=== PATIENT | male | born 1980 | race American Indian/Alaskan Native ===

== ENCOUNTER 2016-06-06 15:08 | Emergency (ER) | payer SELFPAY ==
[2016-06-06 18:54] LABS: Bilirubin,Urine NEG (Negative); Blood,Urine NEG (Negative); Ketones,Urine TR mg/dL (Negative); Leukocyte Esterase,Urine SM (Negative); Mucus,Urine FEW /HPF; Nitrite,Urine NEG (Negative); Protein,Urine <15 mg/dL mg/dL (Negative)
--- NOTE | 2016-06-06 19:03 | XRay Report ---
FINAL REPORT PROCEDURE: Three-view lumbar sacral spine series TECHNIQUE: Lumbar spine radiographs, including AP, lateral, and lumbosacral spot views. CPT 19313 HISTORY: low back pain COMPARISON: No prior studies are available for comparison. FINDINGS: There is mild anterior wedging T12 and L1 vertebral bodies. This can be a normal variant. Mild compression fractures are not excluded. Correlation with physical exam recommended. Disc spaces are well preserved. Posterior elements appear intact. Bone density appears normal. SI joints are unremarkable. IMPRESSION: Mild anterior wedging T12-L1 as described. Correlation with physical exam recommended. No other abnormality is seen..
--- NOTE | 2016-06-06 19:04 | XRay Report ---
FINAL REPORT PROCEDURE: AP pelvis and left hip TECHNIQUE: AP pelvis and frog-leg view left hip. HISTORY: left groin pain COMPARISON: No prior studies are available for comparison. FINDINGS: Fracture (s) and/or Dislocation(s): None . Joint space(s): Normal. Soft tissues: Normal. Bone mineralization: Normal. Foreign bodies: None. IMPRESSION: Negative examination.
--- NOTE | 2016-06-06 19:49 | Emergency Department Report ---
ED Lower Extremity HPI - General Chief Complaint: Extremity Injury, Lower Stated Complaint: PAIN IN GROIN AREA Time Seen by Provider: 06/06/16 17:39 Source: patient Mode of arrival: Ambulatory Limitations: No Limitations - History of Present Illness Initial Comments: Patient is a 35-year-old male who presents due to left groin pain 5 days. Patient denies any scrotal pain, penile pain, penile discharge, dysuria or hematuria. Patient states that he has had similar incident in the past that resolved on its own. Patient denies any injury to his left leg or left hip. Patient also complains of having lower back pain. Patient denies any urinary or bowel incontinence. Patient has any numbness or tingling to his lower extremities. MD Complaint: other (left hip pain) Onset/Timin -: days(s) Injury: Hip: Left Type of Injury: unknown Place: home Severity: severe Severity scale (0 -10): 10 Improves With: immobilization Worsens With: movement Associated Symptoms: snap/pop sensation - Related Data Previous Rx's Medication Instructions Recorded Last Taken Type Ibuprofen [Motrin 800 MG tab] 800 mg PO Q8HR PRN #30 tablet 06/06/16 Unknown Rx methOCARBAMOL [Robaxin TAB] 500 mg PO Q8HR PRN #15 tablet 06/06/16 Unknown Rx traMADol [Ultram 50 MG tab] 50 mg PO Q6HR PRN #15 tablet 06/06/16 Unknown Rx Allergies Allergy/AdvReac Type Severity Reaction Status Date / Time No Known Allergies Allergy Unverified 06/06/16 15:25 ED Review of Systems ROS: Stated complaint: PAIN IN GROIN AREA Other details as noted in HPI Comment: All other systems reviewed and negative Constitutional: no symptoms reported. denies: chills, diaphoresis, fever, malaise, weakness Eyes: denies: eye pain, eye discharge, vision change ENT: denies: ear pain, throat pain, dental pain, hearing loss, epistaxis Respiratory: no symptoms reported. denies: cough, orthopnea, shortness of breath, SOB with exertion, SOB at rest, stridor, wheezing Cardiovascular: denies: chest pain, palpitations, dyspnea on exertion, orthopnea , edema, syncope, paroxysmal nocturnal dyspnea Endocrine: no symptoms reported. denies: excessive sweating, flushing, intolerance to cold, intolerance to heat Gastrointestinal: denies: abdominal pain, nausea, vomiting, diarrhea, constipation, hematemesis, melena, hematochezia Genitourinary: denies: urgency, dysuria, frequency, hematuria, discharge, testicular pain, testicular mass Musculoskeletal: back pain, arthralgia (left hip/groin pain). denies: joint swelling, myalgia Skin: denies: rash Neurological: denies: headache, weakness, numbness, paresthesias, confusion Psychiatric: denies: anxiety ED Past Medical Hx - Past Medical History Previous Medical History?: No - Surgical History Additional Surgical History: NECK - Social History Smoking Status: Never Smoker Substance Use Type: Alcohol - Medications Home Medications: Home Medications Medication Instructions Recorded Confirmed Last Taken Type Ibuprofen [Motrin 800 MG tab] 800 mg PO Q8HR PRN #30 tablet 06/06/16 Unknown Rx methOCARBAMOL [Robaxin TAB] 500 mg PO Q8HR PRN #15 tablet 06/06/16 Unknown Rx traMADol [Ultram 50 MG tab] 50 mg PO Q6HR PRN #15 tablet 06/06/16 Unknown Rx ED Physical Exam - General Limitations: No Limitations General appearance: alert, in no apparent distress - Head Head exam: Present: atraumatic, normocephalic, normal inspection - Eye Eye exam: Present: normal appearance, PERRL, EOMI Pupils: Present: normal accommodation - Respiratory Respiratory exam: Present: normal lung sounds bilaterally. Absent: respiratory distress - Cardiovascular Cardiovascular Exam: Present: regular rate, normal rhythm, normal heart sounds - Expanded Lower Extremity Exam Left Hip exam: Present: full ROM, tenderness (left groin area), internal rotation. Absent: swelling, abrasion, laceration, ecchymosis, deformity, crepidus, dislocation, erythema, external rotation, shortening, pelvic stability Upper Leg exam: Present: normal inspection, full ROM. Absent: tenderness Knee exam: Present: normal inspection, full ROM. Absent: tenderness Lower Leg exam: Present: normal inspection, full ROM. Absent: tenderness, swelling, abrasion, laceration Ankle exam: Present: normal inspection, full ROM. Absent: tenderness Foot/Toe exam: Present: normal inspection, full ROM. Absent: tenderness Neuro vascular tendon exam: Present: no vascular compromise. Absent: motor deficit, sensory deficit, significant pain with passive ROM of distal joint Gait: Positive: observed and normal - Back Exam Back exam: Present: normal inspection, full ROM, paraspinal tenderness (lumbar) . Absent: tenderness, CVA tenderness (R), CVA tenderness (L), muscle spasm, vertebral tenderness - Neurological Exam Neurological exam: Present: alert, oriented X3, normal gait - Psychiatric Psychiatric exam: Present: normal affect, normal mood ED Course Vital Signs 06/06/16 06/06/16 15:26 19:53 Temperature 97.3 F L 97.8 F Pulse Rate 95 H 88 Respiratory 18 20 Rate Blood Pressure 131/78 Blood Pressure 129/76 [Left] O2 Sat by Pulse 95 99 Oximetry ED Lower Extremity MDM - Radiology Data Radiology results: report reviewed, image reviewed X-ray of the lumbar spine show mild anterior wedging and T12 and L1. Patient had no thoracic or lumbar spine tenderness during physical exam. X-ray of the left hip showed no acute osseous findings. - Medical Decision Making Patient was in no acute distress, patient had no thoracic or lumbar spine tenderness, patient had pain with internal rotation of the left hip. There was no swelling in the left groin area. Patient had no knee tenderness with palpation or knee pain with full range of motion. Patient denied having any back injury or falls. Patient was given information on follow-up with an ehs specialist. Patient was discharged with a prescription for Robaxin, tramadol and ibuprofen. - Differential Diagnosis lumbar strain, hip strain, sciatica Critical care attestation.: If time is entered above; I have spent that time in minutes in the direct care of this critically ill patient, excluding procedure time. ED Disposition Clinical Impression: Pain of left hip joint Low back pain Qualifiers: Chronicity: acute Back pain laterality: bilateral Sciatica presence: with sciatica Sciatica laterality: sciatica of left side Qualified Code(s): M54.42 - Lumbago with sciatica, left side Disposition: DISCHARGED TO HOME OR SELFCARE Is pt being admited?: No Does the pt Need Aspirin: No Condition: Good Instructions: Lumbar Radiculopathy (ED), Arthralgia (ED) Additional Instructions: Take Robaxin 500 mg every 8 hours as needed for muscle spasms, take tramadol 1 tablet every 6 hours as needed for severe pain, take ibuprofen 800 mg every 8 hours as needed for moderate pain. Do not drive or use heavy machinery when taking tramadol. Follow-up with provided ehs specialist for any complications. Return to the ER if he started having any urinary or bowel incontinence, numbness or tingling to urine lower legs. Prescriptions: Ibuprofen [Motrin 800 MG tab] 800 mg PO Q8HR PRN #30 tablet PRN Reason: Pain methOCARBAMOL [Robaxin TAB] 500 mg PO Q8HR PRN #15 tablet PRN Reason: Muscle Spasm traMADol [Ultram 50 MG tab] 50 mg PO Q6HR PRN #15 tablet PRN Reason: Pain Referrals: PRIMARY CAREMD [Primary Care Provider] - 3-5 Days LAQUITA ROBINS MD [Staff Physician] - 3-5 Days Forms: Work/School Release Form(ED) Time of Disposition: 19:42
[2016-06-06 19:54] VITALS: BP 129/76
== END 2016-06-06 20:14 | disposition home or self-care (01) ==
LOC: ED 15:08
DX: M25.552 Pain in left hip (principal); M54.42 Lumbago with sciatica, left side
CPT/HCPCS: 72100; 81001; 99283

== ENCOUNTER 2016-11-13 12:38 | Emergency (ER) | payer SELFPAY ==
[2016-11-13 13:35] VITALS: BP 130/81
--- NOTE | 2016-11-13 14:39 | Emergency Department Report ---
ED ENT HPI - General Chief complaint: Dental/Oral Stated complaint: INFECTION IN TOOTH/PAIN Time Seen by Provider: 11/13/16 14:31 Source: patient Mode of arrival: Ambulatory Limitations: No Limitations - History of Present Illness MD complaint: tooth pain -: week(s) Location: tooth # Severity scale (0 -10): 6 Quality: stabbing Associated Symptoms: toothache. denies: fever - Related Data Previous Rx's Medication Instructions Recorded Last Taken Type Ibuprofen [Motrin 800 MG tab] 800 mg PO Q8HR PRN #30 tablet 06/06/16 Unknown Rx methOCARBAMOL [Robaxin TAB] 500 mg PO Q8HR PRN #15 tablet 06/06/16 Unknown Rx traMADol [Ultram 50 MG tab] 50 mg PO Q6HR PRN #15 tablet 06/06/16 Unknown Rx Acetaminophen/Codeine [Tylenol 1 tab PO Q6H PRN #14 tab 11/13/16 Unknown Rx /Codeine # 3 tab] Amoxicillin [Amoxicillin TAB] 875 mg PO BID #14 tablet 11/13/16 Unknown Rx Ondansetron [Zofran Odt] 4 mg PO Q8HR PRN #14 tab.rapdis 11/13/16 Unknown Rx Allergies Allergy/AdvReac Type Severity Reaction Status Date / Time No Known Allergies Allergy Verified 11/13/16 13:31 ED Dental HPI - General Chief complaint: Dental/Oral Stated complaint: INFECTION IN TOOTH/PAIN Time Seen by Provider: 11/13/16 14:31 Source: patient Mode of arrival: Ambulatory Limitations: No Limitations - Related Data Previous Rx's Medication Instructions Recorded Last Taken Type Ibuprofen [Motrin 800 MG tab] 800 mg PO Q8HR PRN #30 tablet 06/06/16 Unknown Rx methOCARBAMOL [Robaxin TAB] 500 mg PO Q8HR PRN #15 tablet 06/06/16 Unknown Rx traMADol [Ultram 50 MG tab] 50 mg PO Q6HR PRN #15 tablet 06/06/16 Unknown Rx Acetaminophen/Codeine [Tylenol 1 tab PO Q6H PRN #14 tab 11/13/16 Unknown Rx /Codeine # 3 tab] Amoxicillin [Amoxicillin TAB] 875 mg PO BID #14 tablet 11/13/16 Unknown Rx Ondansetron [Zofran Odt] 4 mg PO Q8HR PRN #14 tab.rapdis 11/13/16 Unknown Rx Allergies Allergy/AdvReac Type Severity Reaction Status Date / Time No Known Allergies Allergy Verified 11/13/16 13:31 ED Review of Systems ROS: Stated complaint: INFECTION IN TOOTH/PAIN Other details as noted in HPI Comment: All other systems reviewed and negative Constitutional: denies: chills, fever Respiratory: denies: cough, shortness of breath Cardiovascular: denies: chest pain Gastrointestinal: denies: nausea, vomiting ED Past Medical Hx - Past Medical History Previous Medical History?: No - Surgical History Additional Surgical History: NECK - Social History Smoking Status: Current Some Day Smoker Substance Use Type: Alcohol - Medications Home Medications: Home Medications Medication Instructions Recorded Confirmed Last Taken Type Ibuprofen [Motrin 800 MG tab] 800 mg PO Q8HR PRN #30 tablet 06/06/16 Unknown Rx methOCARBAMOL [Robaxin TAB] 500 mg PO Q8HR PRN #15 tablet 06/06/16 Unknown Rx traMADol [Ultram 50 MG tab] 50 mg PO Q6HR PRN #15 tablet 06/06/16 Unknown Rx Acetaminophen/Codeine [Tylenol 1 tab PO Q6H PRN #14 tab 11/13/16 Unknown Rx /Codeine # 3 tab] Amoxicillin [Amoxicillin TAB] 875 mg PO BID #14 tablet 11/13/16 Unknown Rx Ondansetron [Zofran Odt] 4 mg PO Q8HR PRN #14 tab.rapdis 11/13/16 Unknown Rx ED Physical Exam - General Limitations: No Limitations General appearance: alert, in no apparent distress - Expanded ENT Exam Expanded Teeth exam: Present: dental caries ED Course Vital Signs 11/13/16 13:31 Temperature 98.0 F Pulse Rate 57 L Respiratory 18 Rate Blood Pressure 130/81 O2 Sat by Pulse 100 Oximetry Critical care attestation.: If time is entered above; I have spent that time in minutes in the direct care of this critically ill patient, excluding procedure time. ED Disposition Clinical Impression: Dental abscess Disposition: DC-01 TO HOME OR SELFCARE Is pt being admited?: No Condition: Stable Prescriptions: Acetaminophen/Codeine [Tylenol /Codeine # 3 tab] 1 tab PO Q6H PRN #14 tab PRN Reason: Pain Amoxicillin [Amoxicillin TAB] 875 mg PO BID #14 tablet Ondansetron [Zofran Odt] 4 mg PO Q8HR PRN #14 tab.rapdis PRN Reason: Nausea And Vomiting
== END 2016-11-13 15:00 | disposition home or self-care (01) ==
LOC: ED 12:38
DX: K04.7 Periapical abscess without sinus (principal); F17.200 Nicotine dependence, unspecified, uncomplicated
CPT/HCPCS: 99282

== ENCOUNTER 2017-03-10 05:58 | Emergency (ER) | payer SELFPAY ==
--- NOTE | 2017-03-10 06:35 | XRay Report ---
FINAL REPORT EXAM: XR KNEE 1-2V LT HISTORY: pain COMPARISONS: None. FINDINGS: AP and lateral views right knee Mild tricompartmental osteoarthrosis. No fracture, effusion or gross malalignment. IMPRESSION: Mild tricompartmental osteoarthrosis of the right knee without acute finding. Consider additional imaging for worsening/persistent symptoms.
[2017-03-10 07:43] LABS: Basophils % (Auto) 1.2 % (0.0-1.8); Hematocrit 44.2 % (35.5-45.6); Hemoglobin 15.5 gm/dl (11.8-15.2); Mean Corpuscular HGB Conc 35 % (32-34); Mean Corpuscular Hemoglobin 30 pg (28-32); Mean Corpuscular Volume 86 fl (84-94); Red Blood Count 5.13 M/mm3 (3.65-5.03); Red Cell Distribution Width 12.6 % (13.2-15.2); White Blood Count 10.6 K/mm3 (4.5-11.0)
[2017-03-10 07:46] LABS: Platelet Count 257 K/mm3 (140-440)
[2017-03-10 07:58] LABS: Alanine Aminotransferase 16 units/L (7-56); Albumin 4.3 g/dL (3.9-5); Albumin/Globulin Ratio 1.5 %; Alkaline Phosphatase 54 units/L (35-129); Anion Gap 22 mmol/L; BUN/Creatinine Ratio 14; Blood Urea Nitrogen 13 mg/dL (9-20); Calcium 8.6 mg/dL (8.4-10.2); Carbon Dioxide 22 mmol/L (22-30); Chloride 103.1 mmol/L (98-107); Glucose 115 mg/dL (75-100); Potassium 3.9 mmol/L (3.6-5.0); Sodium 143 mmol/L (137-145); Total Protein 7.1 g/dL (6.3-8.2)
[2017-03-10 08:42] LABS: Creatine Kinase MB 1.7 ng/mL (0.0-4.0)
[2017-03-10 08:44] LABS: Creatine Kinase 161 units/L (55-170)
[2017-03-10 09:32] LABS: Urine Drugs of Abuse Note Disclamer
[2017-03-10 09:46] LABS: Bilirubin,Urine NEG (Negative); Blood,Urine NEG (Negative); Ketones,Urine NEG (Negative); Leukocyte Esterase,Urine NEG (Negative); Mucus,Urine FEW /HPF; Nitrite,Urine NEG (Negative); Protein,Urine <15 mg/dL mg/dL (Negative); RBC,Urine < 1.0 /HPF (0.0-6.0)
[2017-03-10] MEDS ORDERED: TORADOL IM ONE (10:52)
--- NOTE | 2017-03-10 11:16 | Emergency Department Report ---
HPI - General Chief Complaint: Extremity Injury, Lower Time Seen by Provider: 03/10/17 10:37 - HPI HPI: This is a 36 year-old male who presents to the emergency department with a complaint of left knee pain that started acutely last night around 5 PM. Patient says that he played football throughout his youth and has a history of some injuries to that knee. He went out on a daily glass night and drank about 10 shots of tequila and then was sleeping at home to get ready for work this morning when he woke up with this pain. The pain is mostly located to the left lateral portion of the knee. He denies any swelling, skin color change. There has been no recent surgeries, long trips or immobility. He feels like the pain increases and/or he is restricted to flexion of the knee. He did not take anything for his symptoms prior to presentation. While the patient was in triage he passed out witnessed by ED staff. The patient thinks it was possibly secondary to his alcohol consumption. At this point his only complaint is his knee and he denies any headache, vision change or any neurological deficits. ED Past Medical Hx - Past Medical History Previous Medical History?: Yes - Surgical History Past Surgical History?: Yes Additional Surgical History: NECK - Social History Smoking Status: Current Some Day Smoker Substance Use Type: Alcohol - Medications Home Medications: Home Medications Medication Instructions Recorded Confirmed Last Taken Type Ibuprofen [Motrin 800 MG tab] 800 mg PO Q8HR PRN #30 tablet 06/06/16 Unknown Rx methOCARBAMOL [Robaxin TAB] 500 mg PO Q8HR PRN #15 tablet 06/06/16 Unknown Rx Acetaminophen/Codeine [Tylenol 1 tab PO Q6H PRN #14 tab 11/13/16 Unknown Rx /Codeine # 3 tab] Amoxicillin [Amoxicillin TAB] 875 mg PO BID #14 tablet 11/13/16 Unknown Rx Ondansetron [Zofran Odt] 4 mg PO Q8HR PRN #14 tab.rapdis 11/13/16 Unknown Rx traMADol [Ultram 50 MG tab] 50 mg PO Q6HR PRN #8 tablet 03/10/17 Unknown Rx ED Review of Systems ROS: Stated complaint: KNEE PAIN Other details as noted in HPI Comment: All other systems reviewed and negative Constitutional: denies: chills, fever Eyes: denies: eye pain, eye discharge, vision change ENT: denies: ear pain, throat pain Respiratory: denies: cough, shortness of breath, wheezing Cardiovascular: syncope. denies: chest pain, palpitations Gastrointestinal: denies: abdominal pain, nausea, diarrhea Genitourinary: denies: urgency, dysuria Musculoskeletal: arthralgia. denies: joint swelling Skin: denies: rash, lesions Neurological: denies: headache, weakness, paresthesias Physical Exam - Physical Exam Vital Signs: Vital Signs 03/10/17 03/10/17 03/10/17 06:02 06:07 07:02 Temperature 97.9 F 97.8 F Pulse Rate 83 86 70 Respiratory 16 17 Rate Blood Pressure 126/71 126/71 Blood Pressure [Right] O2 Sat by Pulse 95 99 Oximetry 03/10/17 03/10/17 03/10/17 07:10 07:30 07:44 Temperature Pulse Rate 72 66 Respiratory 23 13 17 Rate Blood Pressure Blood Pressure 105/55 109/61 [Right] O2 Sat by Pulse 94 95 99 Oximetry 03/10/17 03/10/17 03/10/17 08:00 08:30 09:00 Temperature Pulse Rate 83 74 76 Respiratory 15 12 12 Rate Blood Pressure 105/61 104/48 Blood Pressure 102/41 [Right] O2 Sat by Pulse 92 96 96 Oximetry 03/10/17 03/10/17 09:30 10:00 Temperature Pulse Rate 71 70 Respiratory 14 20 Rate Blood Pressure 101/50 Blood Pressure 101/48 [Right] O2 Sat by Pulse 96 95 Oximetry Physical Exam: GENERAL: The patient is well-developed well-nourished. HENT: Normocephalic. Atraumatic. Patient has moist mucous membranes. EYES: Extraocular motions are intact. Pupils equal reactive to light bilaterally. NECK: Supple. Trachea is midline. CHEST/LUNGS: Clear to auscultation. There is no respiratory distress noted. HEART/CARDIOVASCULAR: Regular. There is no tachycardia. There is no gallop rub or murmur. ABDOMEN: Abdomen is soft, nontender. Patient has normal bowel sounds. There is no abdominal distention. SKIN: Skin is warm and dry. NEURO: The patient is awake, alert, and oriented. The patient is cooperative. The patient has no focal neurologic deficits. The patient has normal speech and gait. MUSCULOSKELETAL: Negative anterior and posterior drawer test of the affected left knee. No laxity with valgus or varus stress. Patient has some restriction and increased pain to flexion of the left knee. There is no evidence of acute injury. ED Course Vital Signs 03/10/17 03/10/17 03/10/17 06:02 06:07 07:02 Temperature 97.9 F 97.8 F Pulse Rate 83 86 70 Respiratory 16 17 Rate Blood Pressure 126/71 126/71 Blood Pressure [Right] O2 Sat by Pulse 95 99 Oximetry 03/10/17 03/10/17 03/10/17 07:10 07:30 07:44 Temperature Pulse Rate 72 66 Respiratory 23 13 17 Rate Blood Pressure Blood Pressure 105/55 109/61 [Right] O2 Sat by Pulse 94 95 99 Oximetry 03/10/17 03/10/17 03/10/17 08:00 08:30 09:00 Temperature Pulse Rate 83 74 76 Respiratory 15 12 12 Rate Blood Pressure 105/61 104/48 Blood Pressure 102/41 [Right] O2 Sat by Pulse 92 96 96 Oximetry 03/10/17 03/10/17 09:30 10:00 Temperature Pulse Rate 71 70 Respiratory 14 20 Rate Blood Pressure 101/50 Blood Pressure 101/48 [Right] O2 Sat by Pulse 96 95 Oximetry ED Medical Decision Making - Lab Data Result diagrams: 03/10/17 07:18 03/10/17 07:18 - EKG Data -: EKG Interpreted by Id EKG shows normal: sinus rhythm, axis, intervals, QRS complexes, ST-T waves Rate: normal - EKG Data When compared to previous EKG there are: previous EKG unavailable Interpretation: normal EKG - Radiology Data Radiology results: report reviewed EXAM: XR KNEE 1-2V LT HISTORY: pain COMPARISONS: None. FINDINGS: AP and lateral views right knee Mild tricompartmental osteoarthrosis. No fracture, effusion or gross malalignment. IMPRESSION: Mild tricompartmental osteoarthrosis of the right knee without acute finding. Consider additional imaging for worsening/persistent symptoms. Transcribed By: ELIZABETH Dictated By: CYNDY DE LA TORRE MD Electronically Authenticated By: CYNDY DE LA TORRE MD Signed Date/Time: 03/10/17231 DD/ 1 - Medical Decision Making 36-year-old male presents with acute left knee pain since last night that is atraumatic. There is no swelling or skin color change. The patient is not immobile and has not had any recent long trips and there is a low suspicion for DVT as a cause. Also the pain is left lateral knee over the bony area. X-ray shows osteoarthritis. He was placed in a knee immobilizer. He may have some issue with his meniscus but this does not require immediate orthopedic attention in the emergency department. He was given a small amount of pain medication for home for later. He was given referrals for 2 different orthopedists groups. He will return to the ER with any worsening of symptoms or any acute distress. - Differential Diagnosis osteoarthritis, septic joint, meniscus tear, cellulitis Critical Care Time: No Critical care attestation.: If time is entered above; I have spent that time in minutes in the direct care of this critically ill patient, excluding procedure time. ED Disposition Clinical Impression: Left knee pain Qualifiers: Chronicity: acute Qualified Code(s): M25.562 - Pain in left knee Arthralgia Qualifiers: Joint pain location: knee Laterality: left Qualified Code(s): M25.562 - Pain in left knee Disposition: DC-01 TO HOME OR SELFCARE Is pt being admited?: No Condition: Stable Instructions: Arthralgia (ED), Knee Immobilizer (ED) Additional Instructions: Please follow up with an orthopedist in the next few days. Return to the emergency Department with any worsening of her symptoms or any acute distress. He can use ice multiple times a day over the next few days but nothing directly against the skin. Other than bathing, I would remain in the knee immobilizer until follow-up with the orthopedist. You have been prescribed a medication that is sedating and therefore should not be taken prior to driving, working, and responsible for children and in no way should be mixed with alcohol of any quantity. Prescriptions: traMADol [Ultram 50 MG tab] 50 mg PO Q6HR PRN #8 tablet PRN Reason: Pain Referrals: STEVIE HAGEN MD [Primary Care Provider] - 3-5 Days ORLY CRUZ MD [Staff Physician] - 3-5 Days [facility] [Provider Group] - 3-5 Days Forms: Work/School Release Form(ED) Time of Disposition: 11:22
[2017-03-10 11:27] VITALS: BP 114/51
== END 2017-03-10 11:44 | disposition home or self-care (01) ==
LOC: ED 05:58
DX: M25.562 Pain in left knee (principal); F17.200 Nicotine dependence, unspecified, uncomplicated
CPT/HCPCS: 29505; 36415; 73560; 80053; 80307; 81001; 82140; 82550; 82553; 82962; 83735; 84443; 84484; 85025; 93005; 93010; 99285; G0480; J1885; 80320

== ENCOUNTER 2020-01-20 11:01 | Emergency (ER) | payer SELFPAY ==
[2020-01-20 11:39] VITALS: BP 140/86
--- NOTE | 2020-01-20 14:15 | Emergency Department Report ---
ED General Adult HPI - General Chief complaint: Chest Pain Stated complaint: RIB PAIN EXTREME Time Seen by Provider: 01/20/20 14:08 Source: patient Mode of arrival: Ambulatory Limitations: No Limitations - History of Present Illness Initial comments: The patient was evaluated in the emergency department for symptoms described in the history of present illness. He/she was evaluated in the context of the global COVID-19 pandemic, which necessitated consideration that the patient might be at risk for infection with the virus that causes COVID-19. Ins titutional protocols and algorithms that pertain to the evaluation of patients at risk for COVID-19 are in a state of rapid change based on information released by regulatory bodies including the CDC and federal and state organizations. These policies and algorithms were followed during the patient's care in the emergency department. Please note that these policies, procedures and recommendations changed on a rapid basis. 39-year-old -German male presents to the emergency room stating that he has been having rib pain for the last 10 months but the last week he had gotten worse when he was coughing. Patient states when he coughs or moves a certain way he will have left-sided rib pain. Patient states that he was taking ibuprofen a while back which had helped but has stopped taking it now. Patient states he is coming in because he needs a return to work note. Patient reports when the pain does come is a 8 out of 10. He denies any shortness of breath at this time denies any chest pain at rest only with certain movements. No nausea no vomiting no diaphoresis. Onset/Timin -: week(s) (1 week left side rib pain), month(s) Radiation: non-radiation Severity scale (0 -10): 8 Quality: sharp Consistency: intermittent Improves with: none Worsens with: movement, other (Cough) Associated Symptoms: denies other symptoms Treatments Prior to Arrival: none - Related Data Previous Rx's Medication Instructions Recorded Last Taken Type methOCARBAMOL [Robaxin TAB] 500 mg PO Q8HR PRN #15 tablet 06/06/16 Unknown Rx Acetaminophen/Codeine [Tylenol 1 tab PO Q6H PRN #14 tab 11/13/16 Unknown Rx /Codeine # 3 tab] Amoxicillin [Amoxicillin TAB] 875 mg PO BID #14 tablet 11/13/16 Unknown Rx Ondansetron [Zofran Odt] 4 mg PO Q8HR PRN #14 tab.rapdis 11/13/16 Unknown Rx traMADoL [Ultram 50 MG tab] 50 mg PO Q6HR PRN #8 tablet 03/10/17 Unknown Rx Ibuprofen [Motrin 800 MG tab] 800 mg PO Q8HR PRN #30 tablet 01/20/20 Unknown Rx Allergies Allergy/AdvReac Type Severity Reaction Status Date / Time No Known Allergies Allergy Verified 11/13/16 13:31 ED Review of Systems ROS: Stated complaint: RIB PAIN EXTREME Other details as noted in HPI Comment: All other systems reviewed and negative ED Past Medical Hx - Past Medical History Previous Medical History?: No - Surgical History Past Surgical History?: Yes Additional Surgical History: NECK - Social History Smoking Status: Current Every Day Smoker Substance Use Type: Alcohol - Medications Home Medications: Home Medications Medication Instructions Recorded Confirmed Last Taken Type methOCARBAMOL [Robaxin TAB] 500 mg PO Q8HR PRN #15 tablet 06/06/16 Unknown Rx Acetaminophen/Codeine [Tylenol 1 tab PO Q6H PRN #14 tab 11/13/16 Unknown Rx /Codeine # 3 tab] Amoxicillin [Amoxicillin TAB] 875 mg PO BID #14 tablet 11/13/16 Unknown Rx Ondansetron [Zofran Odt] 4 mg PO Q8HR PRN #14 tab.rapdis 11/13/16 Unknown Rx traMADoL [Ultram 50 MG tab] 50 mg PO Q6HR PRN #8 tablet 03/10/17 Unknown Rx Ibuprofen [Motrin 800 MG tab] 800 mg PO Q8HR PRN #30 tablet 01/20/20 Unknown Rx ED Physical Exam - General Limitations: No Limitations General appearance: alert, in no apparent distress - Head Head exam: Present: atraumatic, normocephalic - Eye Eye exam: Present: normal appearance, PERRL - ENT ENT exam: Present: normal exam, mucous membranes moist - Neck Neck exam: Present: normal inspection, full ROM. Absent: tenderness, lymphadenopathy - Respiratory Respiratory exam: Present: normal lung sounds bilaterally. Absent: respiratory distress, chest wall tenderness - Cardiovascular Cardiovascular Exam: Present: regular rate, normal rhythm. Absent: systolic murmur, diastolic murmur, rubs, gallop - GI/Abdominal GI/Abdominal exam: Present: soft, normal bowel sounds - Extremities Exam Extremities exam: Present: normal inspection, full ROM - Back Exam Back exam: Present: normal inspection, full ROM. Absent: tenderness - Neurological Exam Neurological exam: Present: alert, oriented X3 - Psychiatric Psychiatric exam: Present: normal affect, normal mood - Skin Skin exam: Present: warm, dry, intact, normal color. Absent: rash ED Course Vital Signs 01/20/20 11:36 Temperature 98.1 F Pulse Rate 77 Respiratory 20 Rate Blood Pressure 140/86 O2 Sat by Pulse 99 Oximetry ED Medical Decision Making - Medical Decision Making 39-year-old -German male presents to the emergency room stating that he has been having rib pain for the last 10 months but the last week he had gotten worse when he was coughing. Patient states when he coughs or moves a certain way he will have left-sided rib pain. Patient states that he was taking ibuprofen a while back which had helped but has stopped taking it now. Patient states he is coming in because he needs a return to work note. Patient reports when the pain does come is a 8 out of 10. He denies any shortness of breath at this time denies any chest pain at rest only with certain movements. No nausea no vomiting no diaphoresis. Patient has a benign physical examination vital signs are stable discussed with patient he can take ibuprofen for the rib pain which is most likely due to costochondritis and irritation from coughing. If he continues to cough he can take [id number] Robitussin. Will recommend for him to follow-up with his primary care provider. Critical care attestation.: If time is entered above; I have spent that time in minutes in the direct care of this critically ill patient, excluding procedure time. ED Disposition Clinical Impression: Costochondritis, acute, Cough Disposition: DC-01 TO HOME OR SELFCARE Is pt being admited?: No Does the pt Need Aspirin: No Condition: Stable Instructions: Costochondritis (ED), Cold Symptoms (ED) Additional Instructions: Increase your fluid intake take your ibuprofen for pain you can try [id number] Robitussin for cough. Follow-up with your primary care provider if your symptoms persist or gets worse. Prescriptions: Ibuprofen [Motrin 800 MG tab] 800 mg PO Q8HR PRN #30 tablet PRN Reason: Pain Referrals: PRIMARY CARE,MD [Primary Care Provider] - 3-5 Days Your, primary care provider [Other] - 3-5 Days Forms: Work/School Release Form(ED)
== END 2020-01-20 14:38 | disposition home or self-care (01) ==
LOC: ED 11:01
DX: M94.0 Chondrocostal junction syndrome [Tietze] (principal); R05 Cough; F17.200 Nicotine dependence, unspecified, uncomplicated; Z79.899 Other long term (current) drug therapy; Z98.890 Other specified postprocedural states
CPT/HCPCS: 99282

== ENCOUNTER 2020-02-25 07:07 | Emergency (ER) | payer SELFPAY ==
[2020-02-25] MEDS ORDERED: IBUPROFEN 800 MG TAB PO ONE (09:02)
--- NOTE | 2020-02-25 09:34 | Emergency Department Report ---
ED ENT HPI - General Chief complaint: Sore Throat Stated complaint: SWOLLEN TONSIL, EAR INFECT Time Seen by Provider: 02/25/20 08:53 Source: patient Mode of arrival: Ambulatory Limitations: No Limitations - History of Present Illness Initial comments: This is a 39-year-old male nontoxic, well nourished in appearance, no acute signs of distress presents to the ED with c/o of sore throat with radiation to left ear. Stated has fever and chills that strated today. Patient describes sore throat as swallowing razer blades. Patient denies any headache, stiff neck, nausea, vomiting, chest pain, shortness of breath, numbness or tingling. Patient denies any drooling or hoarseness. Patient denies any allergies or significant past medical history. MD complaint: sore throat -: days(s) Location: L ear, throat Severity: mild Severity scale (0 -10): 8 Quality: aching Consistency: constant Improves with: none Worsens with: swallowing Associated Symptoms: pain with swallowing, sore throat. denies: fever, cough, gum swelling, toothache, tinnitus, hearing loss, discharge from ear, rhinorrhea - Related Data Previous Rx's Medication Instructions Recorded Last Taken Type methOCARBAMOL [Robaxin TAB] 500 mg PO Q8HR PRN #15 tablet 06/06/16 Unknown Rx Acetaminophen/Codeine [Tylenol 1 tab PO Q6H PRN #14 tab 11/13/16 Unknown Rx /Codeine # 3 tab] Amoxicillin [Amoxicillin TAB] 875 mg PO BID #14 tablet 11/13/16 Unknown Rx Ondansetron [Zofran Odt] 4 mg PO Q8HR PRN #14 tab.rapdis 11/13/16 Unknown Rx traMADoL [Ultram 50 MG tab] 50 mg PO Q6HR PRN #8 tablet 03/10/17 Unknown Rx Ibuprofen [Motrin 800 MG tab] 800 mg PO Q8HR PRN #30 tablet 01/20/20 Unknown Rx Amoxicillin/K Clav Tab [Augmentin 1 tab PO Q12HR #20 tab 02/25/20 Unknown Rx 875 mg] Ibuprofen [Motrin] 800 mg PO Q8HR PRN #20 tablet 02/25/20 Unknown Rx Nystas/Diphen/Xyl Visc/Mylanta 15 ml MM Q6H PRN 5 Days ml 02/25/20 Unknown Rx [Magic Mouthwash] Allergies Allergy/AdvReac Type Severity Reaction Status Date / Time No Known Allergies Allergy Verified 02/25/20 07:21 ED Dental HPI - General Chief complaint: Sore Throat Stated complaint: SWOLLEN TONSIL, EAR INFECT Time Seen by Provider: 02/25/20 08:53 Source: patient Mode of arrival: Ambulatory Limitations: No Limitations - Related Data Previous Rx's Medication Instructions Recorded Last Taken Type methOCARBAMOL [Robaxin TAB] 500 mg PO Q8HR PRN #15 tablet 06/06/16 Unknown Rx Acetaminophen/Codeine [Tylenol 1 tab PO Q6H PRN #14 tab 11/13/16 Unknown Rx /Codeine # 3 tab] Amoxicillin [Amoxicillin TAB] 875 mg PO BID #14 tablet 11/13/16 Unknown Rx Ondansetron [Zofran Odt] 4 mg PO Q8HR PRN #14 tab.rapdis 11/13/16 Unknown Rx traMADoL [Ultram 50 MG tab] 50 mg PO Q6HR PRN #8 tablet 03/10/17 Unknown Rx Ibuprofen [Motrin 800 MG tab] 800 mg PO Q8HR PRN #30 tablet 01/20/20 Unknown Rx Amoxicillin/K Clav Tab [Augmentin 1 tab PO Q12HR #20 tab 02/25/20 Unknown Rx 875 mg] Ibuprofen [Motrin] 800 mg PO Q8HR PRN #20 tablet 02/25/20 Unknown Rx Nystas/Diphen/Xyl Visc/Mylanta 15 ml MM Q6H PRN 5 Days ml 02/25/20 Unknown Rx [Magic Mouthwash] Allergies Allergy/AdvReac Type Severity Reaction Status Date / Time No Known Allergies Allergy Verified 02/25/20 07:21 ED Review of Systems ROS: Stated complaint: SWOLLEN TONSIL, EAR INFECT Other details as noted in HPI Comment: All other systems reviewed and negative Constitutional: chills, fever Eyes: denies: eye pain, eye discharge, vision change ENT: ear pain, throat pain Respiratory: denies: cough, shortness of breath, wheezing Cardiovascular: denies: chest pain, palpitations Endocrine: no symptoms reported Gastrointestinal: denies: abdominal pain, nausea, diarrhea Genitourinary: denies: urgency, dysuria Musculoskeletal: denies: back pain, joint swelling, arthralgia Skin: denies: rash, lesions Neurological: denies: headache, weakness, paresthesias Psychiatric: denies: anxiety, depression Hematological/Lymphatic: denies: easy bleeding, easy bruising ED Past Medical Hx - Past Medical History Previous Medical History?: No - Surgical History Additional Surgical History: NECK - Social History Smoking Status: Never Smoker Substance Use Type: None - Medications Home Medications: Home Medications Medication Instructions Recorded Confirmed Last Taken Type methOCARBAMOL [Robaxin TAB] 500 mg PO Q8HR PRN #15 tablet 06/06/16 Unknown Rx Acetaminophen/Codeine [Tylenol 1 tab PO Q6H PRN #14 tab 11/13/16 Unknown Rx /Codeine # 3 tab] Amoxicillin [Amoxicillin TAB] 875 mg PO BID #14 tablet 11/13/16 Unknown Rx Ondansetron [Zofran Odt] 4 mg PO Q8HR PRN #14 tab.rapdis 11/13/16 Unknown Rx traMADoL [Ultram 50 MG tab] 50 mg PO Q6HR PRN #8 tablet 03/10/17 Unknown Rx Ibuprofen [Motrin 800 MG tab] 800 mg PO Q8HR PRN #30 tablet 01/20/20 Unknown Rx Amoxicillin/K Clav Tab [Augmentin 1 tab PO Q12HR #20 tab 02/25/20 Unknown Rx 875 mg] Ibuprofen [Motrin] 800 mg PO Q8HR PRN #20 tablet 02/25/20 Unknown Rx Nystas/Diphen/Xyl Visc/Mylanta 15 ml MM Q6H PRN 5 Days ml 02/25/20 Unknown Rx [Magic Mouthwash] ED Physical Exam - General Limitations: No Limitations General appearance: alert, in no apparent distress - Head Head exam: Present: atraumatic, normocephalic - Eye Eye exam: Present: normal appearance - Expanded ENT Exam Expanded Ear exam: Present: normal external inspection TM/Canal exam: Erythema: Left TM, Bulging: Left TM Mouth exam: Present: normal external inspection, tongue normal. Absent: dr booth, trismus, muffled voice Teeth exam: Present: normal inspection Throat exam: Positive: tonsillar erythema, tonsillomegaly (2+), tonsillar exudat e, other (uvula midline. no tonsillar abscess noted). Negative: R peritonsillar mass, L peritonsillar mass - Neck Neck exam: Present: normal inspection, full ROM, lymphadenopathy (bilateral tonsillar). Absent: tenderness, meningismus - Respiratory Respiratory exam: Absent: respiratory distress - Cardiovascular Cardiovascular Exam: Present: regular rate - Extremities Exam Extremities exam: Present: full ROM - Back Exam Back exam: Present: full ROM - Neurological Exam Neurological exam: Present: alert, oriented X3, normal gait - Psychiatric Psychiatric exam: Present: normal affect, normal mood - Skin Skin exam: Present: warm, dry, intact, normal color. Absent: rash ED Course Vital Signs 02/25/20 07:28 Temperature 101 F H Pulse Rate 83 Respiratory 22 Rate Blood Pressure 142/80 [Right] O2 Sat by Pulse 95 Oximetry - Reevaluation(s) Reevaluation #1: 02/25/20 09:34 Patient is speaking in full sentences with no signs of distress noted. ED Medical Decision Making - Medical Decision Making This is a 39-year-old male that presents with tonsillitis with exudate. Patient is stable was examined by me. There is no drooling. No tonsillar abscess noted. Uvula is midline. Patient received Motrin in the ER. Vital signs are stable prior to discharge. Patient is not febrile and normal heart rate. Patient was instructed to Follow-up with a primary care doctor in 3-5 days or if symptoms worsen and continue return to emergency room as soon as possible. At time of discharge, the patient does not seem toxic or ill in appearance. No acute signs of distress noted. Patient agrees to discharge treatment plan of care. No further questions noted by the patient. Critical care attestation.: If time is entered above; I have spent that time in minutes in the direct care of this critically ill patient, excluding procedure time. ED Disposition Clinical Impression: Tonsillitis with exudate Disposition: DC-01 TO HOME OR SELFCARE Is pt being admited?: No Does the pt Need Aspirin: No Condition: Stable Instructions: Tonsillitis, Fever, Adult Additional Instructions: Follow-up with a primary care doctor in 3-5 days or if symptoms worsen and continue return to emergency room as soon as possible. Increased rest, hydration, and take Motrin/Tylenol as prescribed for fever episode. Prescriptions: Amoxicillin/K Clav Tab [Augmentin 875 mg] 1 tab PO Q12HR #20 tab Nystas/Diphen/Xyl Visc/Mylanta [Magic Mouthwash] 15 ml MM Q6H PRN 5 Days ml PRN Reason: Sore Throat Ibuprofen [Motrin] 800 mg PO Q8HR PRN #20 tablet PRN Reason: fever/pain Referrals: PRIMARY CAREMD [Primary Care Provider] - 3-5 Days JEAN GRANADOS MD [Staff Physician] - 3-5 Days Forms: Work/School Release Form(ED) Time of Disposition: 10:08
[2020-02-25 10:55] VITALS: BP 133/80
== END 2020-02-25 11:20 | disposition home or self-care (01) ==
LOC: ED 07:07
DX: J03.90 Acute tonsillitis, unspecified (principal); Z79.899 Other long term (current) drug therapy; Z98.890 Other specified postprocedural states
CPT/HCPCS: 99282

== ENCOUNTER 2020-07-29 09:30 | Emergency (ER) | payer SELFPAY ==
[2020-07-29 09:39] VITALS: BP 143/79
--- NOTE | 2020-07-29 11:30 | Event Note ---
ED Screening Note Date of service: 07/29/20 Time: 11:27 ED Screening Note: 39-year-old male patient presents emergency department with complaints of progressively worsening sore throat for 3 weeks with associated fever and chills starting 3 days ago. Patient states he took some leftover Amoxicillin following the onset of his symptoms. He was never tested for strep throat. 3 days ago, he began to notice fever and chills. Patient took Motrin approximately 4 hours prior to arrival. He also endorses voice changes and pain with both speaking and swallowing worsening over the last 24 hours. States he is handling his oral secretions without difficulty. Tachycardic in triage. General: Awake, appropriately interactive, no acute distress. ENT: Bilateral pharyngeal erythema with exudates present. Right tonsil is significantly larger than the left tonsil. Uvula is midline. Patient reports his voice does not sound normal, however he is not hoarse or seated in a tripod position. No trismus. Neck: Supple. Full range of motion intact. Bilateral anterior cervical lymphadenopathy. Cardiovascular: Normal peripheral perfusion. Pulmonary: No respiratory distress. Patient is speaking normally without use of accessory muscles. Skin: No apparent rashes or lesions. Neurological: No facial asymmetry. Speech is clear. Follows commands. Patient is alert and oriented. Musculoskeletal: Moves all four extremities spontaneously with normal range of motion. Psych: Cooperative. Appropriate mood and affect. I have greeted and performed a focused rapid initial assessment of this patient. A comprehensive ED assessment and evaluation of the patient, analysis of all test results, and completion of the medical decision-making process will be conducted by additional ED providers. This initial assessment/diagnostic orders/clinical plan/treatment(s) is/are subject to change based on patients health status, clinical progression and re-assessment. Further treatment and workup at subsequent clinical provider's discretion. Patient/guardian urged not to elope from the ED as their condition may be serious if not clinically assessed and managed.
[2020-07-29 12:23] LABS: Basophils # (Auto) 0.1 K/mm3 (0.0-0.1); Basophils % (Auto) 0.4 % (0.0-1.8); Eosinophils # (Auto) 0.2 K/mm3 (0.0-0.4); Eosinophils % (Auto) 1.4 % (0.0-4.3); Hematocrit 42.7 % (35.5-45.6); Hemoglobin 14.4 gm/dl (11.8-15.2); Lymphocytes # (Auto) 1.8 K/mm3 (1.2-5.4); Lymphocytes % (Auto) 10.5 % (13.4-35.0); Mean Corpuscular HGB Conc 34 % (32-34); Mean Corpuscular Volume 84 fl (84-94); Monocytes # (Auto) 1.5 K/mm3 (0.0-0.8); Monocytes % (Auto) 8.5 % (0.0-7.3); Platelet Count 381 K/mm3 (140-440); Red Cell Distribution Width 13.2 % (13.2-15.2)
[2020-07-29 13:08] LABS: Alanine Aminotransferase 21 units/L (7-56); Albumin 4.3 g/dL (3.9-5); BUN/Creatinine Ratio 12; Blood Urea Nitrogen 13 mg/dL (9-20); Calcium 9.4 mg/dL (8.4-10.2); Hemolysis Index 21
--- NOTE | 2020-07-29 13:51 | Emergency Department Report ---
ED ENT HPI - General Chief complaint: Sore Throat Stated complaint: SWOLLEN/SORE THROAT Time Seen by Provider: 07/29/20 12:19 Source: patient Mode of arrival: Ambulatory Limitations: No Limitations - History of Present Illness Initial comments: 39-year-old male patient presents emergency department with complaints of progressively worsening sore throat for 3 weeks with associated fever and chills starting 3 days ago. Patient states he took some leftover Amoxicillin following the onset of his symptoms. He was never tested for strep throat. 3 days ago, he began to notice fever and chills. Patient took Motrin approximately 4 hours prior to arrival. He also endorses voice changes and pain with both speaking and swallowing worsening over the last 24 hours. States he is handling his oral secretions without difficulty. Onset/Timin - Related Data Previous Rx's Medication Instructions Recorded Last Taken Type methOCARBAMOL [Robaxin TAB] 500 mg PO Q8HR PRN #15 tablet 06/06/16 Unknown Rx Acetaminophen/Codeine [Tylenol 1 tab PO Q6H PRN #14 tab 11/13/16 Unknown Rx /Codeine # 3 tab] Amoxicillin [Amoxicillin TAB] 875 mg PO BID #14 tablet 11/13/16 Unknown Rx Ondansetron [Zofran Odt] 4 mg PO Q8HR PRN #14 tab.rapdis 11/13/16 Unknown Rx traMADoL [Ultram 50 MG tab] 50 mg PO Q6HR PRN #8 tablet 03/10/17 Unknown Rx Ibuprofen [Motrin 800 MG tab] 800 mg PO Q8HR PRN #30 tablet 01/20/20 Unknown Rx Amoxicillin/K Clav Tab [Augmentin 1 tab PO Q12HR #20 tab 02/25/20 Unknown Rx 875 mg] Ibuprofen [Motrin] 800 mg PO Q8HR PRN #20 tablet 02/25/20 Unknown Rx Nystas/Diphen/Xyl Visc/Mylanta 15 ml MM Q6H PRN 5 Days ml 02/25/20 Unknown Rx [Magic Mouthwash] Azithromycin [Zithromax TAB] 500 mg PO QDAY 5 Days #5 tablet 07/29/20 Unknown Rx Ibuprofen [Motrin 800 MG tab] 800 mg PO Q8HR PRN #30 tablet 07/29/20 Unknown Rx Allergies Allergy/AdvReac Type Severity Reaction Status Date / Time No Known Allergies Allergy Verified 02/25/20 07:21 ED Dental HPI - General Chief complaint: Sore Throat Stated complaint: SWOLLEN/SORE THROAT Time Seen by Provider: 07/29/20 12:19 Source: patient Mode of arrival: Ambulatory Limitations: No Limitations - Related Data Previous Rx's Medication Instructions Recorded Last Taken Type methOCARBAMOL [Robaxin TAB] 500 mg PO Q8HR PRN #15 tablet 06/06/16 Unknown Rx Acetaminophen/Codeine [Tylenol 1 tab PO Q6H PRN #14 tab 11/13/16 Unknown Rx /Codeine # 3 tab] Amoxicillin [Amoxicillin TAB] 875 mg PO BID #14 tablet 11/13/16 Unknown Rx Ondansetron [Zofran Odt] 4 mg PO Q8HR PRN #14 tab.rapdis 11/13/16 Unknown Rx traMADoL [Ultram 50 MG tab] 50 mg PO Q6HR PRN #8 tablet 03/10/17 Unknown Rx Ibuprofen [Motrin 800 MG tab] 800 mg PO Q8HR PRN #30 tablet 01/20/20 Unknown Rx Amoxicillin/K Clav Tab [Augmentin 1 tab PO Q12HR #20 tab 02/25/20 Unknown Rx 875 mg] Ibuprofen [Motrin] 800 mg PO Q8HR PRN #20 tablet 02/25/20 Unknown Rx Nystas/Diphen/Xyl Visc/Mylanta 15 ml MM Q6H PRN 5 Days ml 02/25/20 Unknown Rx [Magic Mouthwash] Azithromycin [Zithromax TAB] 500 mg PO QDAY 5 Days #5 tablet 07/29/20 Unknown Rx Ibuprofen [Motrin 800 MG tab] 800 mg PO Q8HR PRN #30 tablet 07/29/20 Unknown Rx Allergies Allergy/AdvReac Type Severity Reaction Status Date / Time No Known Allergies Allergy Verified 02/25/20 07:21 ED Review of Systems ROS: Stated complaint: SWOLLEN/SORE THROAT Other details as noted in HPI Comment: All other systems reviewed and negative ED Past Medical Hx - Past Medical History Previous Medical History?: No - Surgical History Past Surgical History?: Yes Additional Surgical History: NECK - Social History Smoking Status: Never Smoker Substance Use Type: None - Medications Home Medications: Home Medications Medication Instructions Recorded Confirmed Last Taken Type methOCARBAMOL [Robaxin TAB] 500 mg PO Q8HR PRN #15 tablet 02/25/17 Unknown Rx Acetaminophen/Codeine [Tylenol 1 tab PO Q6H PRN #14 tab 11/13/16 Unknown Rx /Codeine # 3 tab] Amoxicillin [Amoxicillin TAB] 875 mg PO BID #14 tablet 11/13/16 Unknown Rx Ondansetron [Zofran Odt] 4 mg PO Q8HR PRN #14 tab.rapdis 11/13/16 Unknown Rx traMADoL [Ultram 50 MG tab] 50 mg PO Q6HR PRN #8 tablet 03/10/17 Unknown Rx Ibuprofen [Motrin 800 MG tab] 800 mg PO Q8HR PRN #30 tablet 01/20/20 Unknown Rx Amoxicillin/K Clav Tab [Augmentin 1 tab PO Q12HR #20 tab 02/25/20 Unknown Rx 875 mg] Ibuprofen [Motrin] 800 mg PO Q8HR PRN #20 tablet 02/25/20 Unknown Rx Nystas/Diphen/Xyl Visc/Mylanta 15 ml MM Q6H PRN 5 Days ml 02/25/20 Unknown Rx [Magic Mouthwash] Azithromycin [Zithromax TAB] 500 mg PO QDAY 5 Days #5 tablet 07/29/20 Unknown Rx Ibuprofen [Motrin 800 MG tab] 800 mg PO Q8HR PRN #30 tablet 07/29/20 Unknown Rx ED Physical Exam - General Limitations: No Limitations General appearance: alert, in no apparent distress - Head Head exam: Present: atraumatic, normocephalic - Eye Eye exam: Present: normal appearance - Expanded ENT Exam Expanded Throat exam: Positive: tonsillar erythema, tonsillomegaly, tonsillar exudate, o ther (Uvula is midline no airway compromise) - Neck Neck exam: Present: full ROM, lymphadenopathy (Anterior cervical). Absent: tenderness - Respiratory Respiratory exam: Present: normal lung sounds bilaterally. Absent: accessory muscle use - Cardiovascular Cardiovascular Exam: Present: bradycardia - GI/Abdominal GI/Abdominal exam: Present: soft. Absent: distended - Extremities Exam Extremities exam: Present: normal inspection - Back Exam Back exam: Present: normal inspection - Neurological Exam Neurological exam: Present: alert, oriented X3, normal gait - Psychiatric Psychiatric exam: Present: normal affect, normal mood - Skin Skin exam: Present: warm, dry, intact, normal color. Absent: rash ED Course Vital Signs 07/29/20 09:35 Temperature 97.9 F Pulse Rate 100 H Respiratory 17 Rate Blood Pressure 143/79 [Right] O2 Sat by Pulse 96 Oximetry ED Medical Decision Making - Lab Data Result diagrams: 07/29/20 11:37 07/29/20 11:37 - Medical Decision Making 39-year-old male patient presents emergency department with complaints of progressively worsening sore throat for 3 weeks with associated fever and chills starting 3 days ago. Patient states he took some leftover Amoxicillin following the onset of his symptoms. He was never tested for strep throat. 3 days ago, he began to notice fever and chills. Patient took Motrin approximately 4 hours prior to arrival. He also endorses voice changes and pain with both speaking and swallowing worsening over the last 24 hours. States he is handling his oral secretions without difficulty. Patient is protecting his airway without any difficulties. Strep test is positive. Patient will be given a penicillin G IM injection and will be discharged home on a azithromycin. Critical care attestation.: If time is entered above; I have spent that time in minutes in the direct care o f this critically ill patient, excluding procedure time. ED Disposition Clinical Impression: Strep pharyngitis Disposition: DC-01 TO HOME OR SELFCARE Is pt being admited?: No Does the pt Need Aspirin: No Condition: Stable Instructions: Strep Throat, Adult, [id number] Additional Instructions: Strep test positive. Complete antibiotics as prescribed pain medication as needed. Increase your fluid intake advance your diet as tolerated. Follow-up with a primary care provider. Prescriptions: Ibuprofen [Motrin 800 MG tab] 800 mg PO Q8HR PRN #30 tablet PRN Reason: Pain , Severe (7-10) Azithromycin [Zithromax TAB] 500 mg PO QDAY 5 Days #5 tablet Referrals: PRIMARY CARE, [Primary Care Provider] - 3-5 Days [facility] [Provider Group] - 3-5 Days Forms: Work/School Release Form(ED)
[2020-07-29] MEDS ORDERED: PENICILLIN G BENZATHINE 1.2 MILLION UNIT/2 ML INJ IM ONE (13:54)
[2020-07-29] MEDS ORDERED: IBUPROFEN 800 MG TAB PO ONE (13:54)
== END 2020-07-29 14:44 | disposition home or self-care (01) ==
LOC: ED 09:30
DX: J02.9 Acute pharyngitis, unspecified (principal); Z79.899 Other long term (current) drug therapy
CPT/HCPCS: 36415; 80053; 85025; 87430; 96372; 99283; J0561